=== PATIENT | female | born 1995 | race Caucasian/White ===

== ENCOUNTER 2020-01-28 07:37 | Emergency (ER) | payer OTHER ==
[2020-01-28 08:11] LABS: BASOPHILS % (AUTO) 0.3 %; EOSINOPHILS # (AUTO) 0.1 10^3/uL (0.0-0.7); EOSINOPHILS % (AUTO) 1.2 %; HGB - HEMOGLOBIN 14.5 g/dL (12.0-16.0); LYMPHOCYTES # (AUTO) 2.3 10^3/uL (1.5-3.5); MEAN CORPUSCULAR HEMOGLOBIN 30.3 pg (27.0-31.0); MEAN CORPUSCULAR HGB CONC 33.3 g/dL (32.0-36.0); MEAN PLATELET VOLUME 9.9 fL (7.9-10.8); MONOCYTES # (AUTO) 0.7 10^3/uL (0.0-1.0); MONOCYTES % (AUTO) 10.8 %; NEUTROPHILS # (AUTO) 3.3 10^3/uL (1.5-6.6); NEUTROPHILS % (AUTO) 51.5 %; PLT - PLATELET COUNT 369 10^3/uL (130-450); RED BLOOD COUNT 4.79 10^6/uL (4.20-5.40); RED CELL DISTRIBUTION WIDTH 11.6 % (12.0-15.0); WHITE BLOOD COUNT 6.4 x10^3/uL (4.8-10.8)
[2020-01-28 08:22] LABS: BILIRUBIN,URINE NEGATIVE (NEGATIVE); GLUCOSE, URINE (UA) NEGATIVE (NEGATIVE); KETONES,URINE (UA) NEGATIVE (NEGATIVE); LEUKOCYTE ESTERASE, URINE NEGATIVE (NEGATIVE); NITRITE,URINE NEGATIVE (NEGATIVE); OCCULT BLOOD,URINE LARGE (NEGATIVE); PROTEIN,URINE NEGATIVE (NEGATIVE); UROBILINOGEN,URINE 0.2 (NORMAL) E.U./dL (NORMAL)
[2020-01-28 08:25] LABS: CLARITY,URINE CLOUDY (CLEAR)
[2020-01-28 08:27] LABS: ALBUMIN 4.3 g/dL (3.2-5.5); BILIRUBIN,TOTAL 0.8 mg/dL (0.2-1.0); CALCIUM 9.7 mg/dL (8.5-10.3); CREATININE 0.8 mg/dL (0.4-1.0); TOTAL PROTEIN 8.6 g/dL (6.7-8.2)
[2020-01-28 08:33] LABS: BACTERIA,URINE Many /HPF (None Seen); MUCUS,URINE Marked Strands; SQUAMOUS EPITHELIAL CELL,UR MANY Squamous (<= Few)
--- NOTE | 2020-01-28 08:33 | ED Physician Documentation ---
PD HPI ABD PAIN - Stated complaint Stated Complaint: ABD PX - Chief complaint Chief Complaint: Abd Pain - History obtained from History obtained from: Patient - History of Present Illness Timing - onset: How many weeks ago (1) Timing - duration: Weeks (1) Timing - details: Gradual onset, Still present, Waxing and waning Quality: Sharp, Pain Location: RUQ Improved by: Laying still Worsened by: Eating, Moving, Breathing, Position, Palpation Associated symptoms: Nausea. No: Fever, Diarrhea, Constipation Similar symptoms before: Has not had sx before Recently seen: Clinic - Additional information Additional information: 24-year-old female history of atrophic gastritis has developed right upper quadrant abdominal pain about 1 week ago. She is had persistence of her symptoms she has worsening of her pain when she eats and she has worsening of her pain when she lays on her side or presses on the area or takes a deep breath. She is been in to see her doctors has had an ultrasound done demonstrating normal gallbladder. She has had prior episodes of abdominal pain of a different nature and had endoscopy done demonstrating an atrophic stomach lining and only 1% acid production. Review of Systems Constitutional: denies: Fever Eyes: denies: Decreased vision Ears: denies: Ear pain Nose: denies: Congestion Throat: denies: Sore throat Cardiac: denies: Chest pain / pressure, Palpitations Respiratory: denies: Dyspnea, Cough GI: reports: Abdominal Pain, Nausea. denies: Constipation, Diarrhea : denies: Dysuria, Frequency Skin: denies: Rash Musculoskeletal: denies: Neck pain, Back pain, Extremity pain Neurologic: denies: Generalized weakness, Focal weakness, Numbness PD PAST MEDICAL HISTORY - Present Medications Home Medications: Ambulatory Orders Medication Instructions Recorded Confirmed traMADol [Ultram] 50 - 100 mg PO Q6H PRN #20 tablet 01/28/20 - Allergies Allergies/Adverse Reactions: Allergies Allergy/AdvReac Type Severity Reaction Status Date / Time No Known Drug Allergies Allergy Verified 01/28/20 07:49 PD ED PE NORMAL - Vitals Vital signs reviewed: Yes (hypertensive ) - General General: Alert and oriented X 3, No acute distress, Well developed/nourished - HEENT HEENT: Atraumatic, PERRL, EOMI - Neck Neck: Supple, no meningeal sign, No bony TTP - Cardiac Cardiac: RRR, No murmur - Respiratory Respiratory: No respiratory distress, Clear bilaterally - Abdomen Abdomen: Normal bowel sounds, Soft, Non distended, No organomegaly, Other (RUQ tenderness is reproducible without garding but with arrest of respiration with palpation. ) - Back Back: No CVA TTP, No spinal TTP - Derm Derm: Normal color, Warm and dry, No rash - Extremities Extremities: No deformity, No edema - Neuro Neuro: Alert and oriented X 3, airport guide 2-12 intact, No motor deficit, No sensory deficit, Normal speech Eye Opening: Spontaneous Motor: Obeys Commands Verbal: Oriented GCS Score: 15 - Psych Psych: Normal mood, Normal affect Results - Vitals Vitals: Vital Signs - 24 hr 01/28/20 01/28/20 01/28/20 07:40 07:49 09:49 Temperature 36.3 C L Heart Rate 93 90 83 Respiratory 18 16 16 Rate Blood Pressure 139/96 H 140/78 H 135/75 H O2 Saturation 100 100 100 Oxygen O2 Source Room air - Labs Labs: Laboratory Tests 01/28/20 01/28/20 01/28/20 08:04 08:04 08:11 WBC 6.4 RBC 4.79 Hgb 14.5 Hct 43.6 MCV 91.0 MCH 30.3 MCHC 33.3 RDW 11.6 L Plt Count 369 MPV 9.9 Neut # (Auto) 3.3 Lymph # (Auto) 2.3 [place] # (Auto) 0.7 Eos # (Auto) 0.1 Baso # (Auto) 0.0 Absolute Nucleated RBC 0.00 Nucleated RBC % 0.0 Sodium 135 Potassium 4.0 Chloride 101 Carbon Dioxide 22 Anion Gap 12.0 BUN 12 Creatinine 0.8 Estimated GFR (MDRD) 87 L Glucose 94 Calcium 9.7 Total Bilirubin 0.8 AST 21 ALT 14 Alkaline Phosphatase 49 Total Protein 8.6 H Albumin 4.3 Globulin 4.3 H Albumin/Globulin Ratio 1.0 Lipase 28 Urine Color YELLOW Urine Clarity CLOUDY Urine pH 6.0 Ur Specific [place] >=1.030 H Urine Protein NEGATIVE Urine Glucose (UA) NEGATIVE Urine Ketones NEGATIVE Urine Occult Blood LARGE H Urine Nitrite NEGATIVE Urine Bilirubin NEGATIVE Urine Urobilinogen 0.2 (NORMAL) Ur Leukocyte Esterase NEGATIVE Urine RBC 6-10 H Urine WBC 4-5 Ur Squamous Epith Cells MANY Squamous H Urine Bacteria Many H Urine Mucus Marked Strands Ur Microscopic Review INDICATED Urine Culture Comments NOT INDICATED Urine HCG, Qual 01/28/20 08:11 WBC RBC Hgb Hct MCV MCH MCHC RDW Plt Count MPV Neut # (Auto) Lymph # (Auto) [place] # (Auto) Eos # (Auto) Baso # (Auto) Absolute Nucleated RBC Nucleated RBC % Sodium Potassium Chloride Carbon Dioxide Anion Gap BUN Creatinine Estimated GFR (MDRD) Glucose Calcium Total Bilirubin AST ALT Alkaline Phosphatase Total Protein Albumin Globulin Albumin/Globulin Ratio Lipase Urine Color Urine Clarity Urine pH Ur Specific [place] >=1.030 H Urine Protein Urine Glucose (UA) Urine Ketones Urine Occult Blood Urine Nitrite Urine Bilirubin Urine Urobilinogen Ur Leukocyte Esterase Urine RBC Urine WBC Ur Squamous Epith Cells Urine Bacteria Urine Mucus Ur Microscopic Review Urine Culture Comments Urine HCG, Qual NEGATIVE - Rads (name of study) u/s abd Radiology: Prelim report reviewed (Impression: Normal right upper quadrant abdominal ultrasound with no explanation for pain.), EMP read indepedently, See rad report Procedures - Bedside sono Bedside sono by EMP: With use of bedside ultrasound the gallbladder is imaged it is sonographically tender there is no pericholecystic fluid no thickening of the gallbladder wall or or no evidence of obvious stone. The right kidney is imaged it is so nographically tender as well there is not obvious hydronephrosis. PD MEDICAL DECISION MAKING - ED course Complexity details: reviewed old records, reviewed results, re-evaluated patient, considered differential, d/w patient ED course: 24-year-old female with right upper quadrant abdominal pain has had right upper quadrant of abdominal pain over the past week and she has had ultrasound done which was negative we have repeated the ultrasound here today did not find any evidence of intrahepatic bile duct dilation and no chemical evidence of obstruction. She does have a tender right upper quadrant specifically and she does get some relief of her pain with continued compression of the gallbladder. She has a family history of mother and grandmother requiring HIDA scan to delineate her gallbladder problem which resolved her symptoms when the gallbladder was removed. I considered imaging with CT scan and after discussing with the patient her symptoms and her relief of pain with compression she allowed me to compress her gallbladder and did get further relief of her pain. I suspect the patient needs the HIDA scan and I have referred her to surgery for further evaluation.Today there is no evidence of obstruction or cholecystitis and we will treat her symptomatically while she is waiting to get her scans done.We will place her on a fat-free diet and provide some tramadol for pain relief.( not able to take oral NSAIDS secondary to atrophic gastritis) Departure - Departure Disposition: 01 Home, Self Care Clinical Impression: Biliary colic Condition: Stable Instructions: ED Abdominal Pain Gallstone Poss, ED Diet Low Fat Follow-Up: Hunter Meyers MD [Provider Admit Priv/Credential] - Prescriptions: traMADol [Ultram] 50 - 100 mg PO Q6H PRN #20 tablet PRN Reason: Pain
--- NOTE | 2020-01-28 10:17 | Ultrasound Report ---
PROCEDURE: Abdomen Limited INDICATIONS: RUQ pain X 1 wk TECHNIQUE: Real-time focused scanning was performed of the abdomen, with image documentation. COMPARISON: None FINDINGS: Normal hepatic parenchymal echogenicity, echotexture, and contour. No focal hepatic mass. No intrahepatic or extrahepatic biliary ductal dilatation. The common duct measures 2 mm. Normal appearance of the gallbladder without sludge, cholelithiasis, wall thickening, or pericholecys tic fluid. Right kidney is unremarkable. IMPRESSION: Normal right upper quadrant abdominal ultrasound with no explanation for pain. Reviewed by: Chester Gordon MD on 01/28/2020 10:16 AM PDT Approved by: Chester Gordon MD on 01/28/2020 10:16 AM PDT Station ID: [id number]
[2020-01-28] MEDS ORDERED: KETOROLAC 30 MG/ML VIAL IVP STA (10:33)
[2020-01-28 10:39] LABS: HCG UR QUAL NEGATIVE
[2020-01-28 10:58] VITALS: BP 124/78
== END 2020-01-28 10:58 | disposition home or self-care (01) ==
LOC: ED 07:37
DX: K80.50 Calculus of bile duct without cholangitis or cholecystitis without obstruction (principal)
CPT/HCPCS: 36415; 76705; 80053; 81001; 81003; 81025; 83690; 85025; 87086; 96374; 99284

== ENCOUNTER 2020-02-05 08:52 | Outpatient (CLI) | payer OTHER ==
[2020-02-05] MEDS ORDERED: SINCALIDE 5 MCG VIAL ONE (10:07)
[2020-02-05] MEDS ORDERED: SINCALIDE 1.5 MCG in SODIUM CHLORIDE 0.9% 50 ML IV ONE (12:43)
--- NOTE | 2020-02-05 14:18 | Nuclear Medicine Report ---
PROCEDURE: Hepatobiliary HIDA w/ Rx INDICATIONS: ABD PAIN RADIOPHARMACEUTICAL: 5.2 mCi Tc-99m meprofenin i.v. and 1.5 ?g sincalide i.v. TECHNIQUE: Following intravenous administration of Tc-99m meprofenin, sequential anterior abdominal images were obtained through 55 minutes. To evaluate the contractile response of the gallbladder in response to Cholecystokinin (CCK), 1.5 microgram sincalide (0.02 ?g/kg) was administered by slow intr avenous infusion approximately extending minutes after the administration of the radiopharmaceutical. Sequential imaging was continued for 30 minutes after the start of CCK infusion. Gallbladder eject ion fraction was calculated. COMPARISON: None. FINDINGS: Biliary scan: There is normal tracer uptake and excretion by the liver. There is normal visualizati on of the intrahepatic ducts, common bile duct, and gallbladder. There is normal tracer transit into the duodenum. CCK stimulation: There is normal contractile response of the gallbladder to CCK infusion. The calcu lated gallbladder ejection fraction is 53%; normal values are above 35%. IMPRESSION: 1. Normal biliary imaging study. 2. Normal contractile response of gallbladder to CCK infusion.. Reviewed by: Feli Oliveira MD, PhD on 02/05/2020 2:17 PM PDT Approved by: Feli Oliveira MD, PhD on 02/05/2020 2:17 PM PDT Station ID: [id number]
== END 2020-02-05 08:53 | disposition home or self-care (01) ==
LOC: DI 08:52
PROVIDERS: ATTEND Nurse Practitioner Family
DX: R10.9 Unspecified abdominal pain (principal)
CPT/HCPCS: 78227; J7040

== ENCOUNTER 2020-10-12 23:50 | Emergency (ER) | payer OTHER ==
--- NOTE | 2020-10-13 02:57 | ED Physician Documentation ---
PD HPI SKIN - Stated complaint Stated Complaint: LT FOOT SWOLLEN/RASH - Chief complaint Chief Complaint: Ext Problem - History obtained from History obtained from: Patient - History of Present Illness Timing - onset: How many days ago (few) Timing - duration: Days (few) Timing - details: Abrupt onset (started with blister appearing lesion between 2 toes and then started to have redness and tenderness. Seen at [facility] and Rx Augmentin and mupirocin 2 days ago, and the redness has increased since.), Still present (worsening since seen in clinic; she feels topical mupirocin making it worse versus just getting worse anyway.) Location: LLE (initially between 2nd and 3rd toes, and now onto dorsum of the foot.) Quality / character: Painful, Discolored (red), Swelling. No: Vesicular, Draining Associated symptoms: No: Fever, Myalgias, N/V/D Contributing factors: No: Exposed to Poison adolfo/oak, Insect bite /sting Similar symptoms before: Has not had sx before Recently seen: Clinic ([facility] 2 days ago with Rx of augmentin and mupirocin with worsening still.) PD PAST MEDICAL HISTORY - Present Medications Home Medications: Ambulatory Orders Medication Instructions Recorded Confirmed traMADol [Ultram] 50 - 100 mg PO Q6H PRN #20 tablet 01/28/20 Doxycycline Hyclate 150 mg PO BID #14 tablet 10/13/20 - Allergies Allergies/Adverse Reactions: Allergies Allergy/AdvReac Type Severity Reaction Status Date / Time No Known Drug Allergies Allergy Verified 10/13/20 00:01 - Social History Does the pt smoke?: No Smoking Status: Never smoker Does the pt have substance abuse?: No - Immunizations Immunizations are current?: Yes PD ED PE NORMAL - Vitals Vital signs reviewed: Yes - General General: Alert and oriented X 3, No acute distress, Well developed/nourished - Derm Derm: Normal color, Warm and dry - Extremities Extremities: Other (right foot with small skin erosion between 2-3 toes. Others are good without tinea appearance. Redness with tender and swelling to dorsum of foot to about mid MT area. No redness on plantar. ) - Neuro Neuro: No motor deficit, No sensory deficit Results - Vitals Vitals: Vital Signs - 24 hr 10/13/20 10/13/20 00:01 03:25 Temperature 36.8 C 36.2 C L Heart Rate 70 72 Respiratory 16 14 Rate Blood Pressure 138/96 H 119/72 O2 Saturation 100 100 Oxygen O2 Source Room air PD MEDICAL DECISION MAKING - ED course Complexity details: considered differential (initially small abscess like lesion with now cellulitis on foot. Presume needs better staph coverage since not improving on Augmentin.), d/w patient Departure - Departure Disposition: 01 Home, Self Care Clinical Impression: Cellulitis of foot Condition: Stable Record reviewed to determine appropriate education?: Yes Instructions: ED Infec Skin Cellulitis Follow-Up: YAIMA CAMPOS ARNP [Primary Care Provider] - Prescriptions: Doxycycline Hyclate 150 mg PO BID #14 tablet Comments: Stop the mupirocin and amoxicillin/clavulanic acid as it did not seem to be working. I think the increased redness is just spreading of the infection and not a reaction to the topical antibiotic. However it does suggest the medicines are not working. Continue cleaning the area with soap and water and apply just regular antibiotic ointment lightly such as bacitracin or Neosporin. Change antibiotics to doxycycline twice daily for a week. Recheck if not improving well over the next 2 to 3 days and resolved by 3 to 5 days. Return if worsening or general symptoms such as nausea fever lightheadedness etc. Discharge Date/Time: 10/13/20 03:25
[2020-10-13] MEDS ORDERED: BACITRACIN ZINC OINT 1 PACKET TOP STA (03:11)
[2020-10-13] MEDS ORDERED: DOXYCYCLINE 100 MG TABLET PO STA (03:11)
[2020-10-13 03:26] VITALS: BP 119/72
== END 2020-10-13 03:25 | disposition home or self-care (01) ==
LOC: ED 23:50
DX: L03.116 Cellulitis of left lower limb (principal)
CPT/HCPCS: 99281; 99282; A9270

== ENCOUNTER 2020-12-17 19:41 | Emergency (ER) | payer OTHER ==
--- NOTE | 2020-12-17 20:40 | ED Physician Documentation ---
PD HPI SKIN - Stated complaint Stated Complaint: LT TOE WOUNDS - Chief complaint Chief Complaint: Ext Problem - History obtained from History obtained from: Patient - History of Present Illness Timing - onset: How many months ago (2) Timing - details: Gradual onset Pain level now: 3 Location: LLE Quality / character: Itchy, Burning, Vesicular Associated symptoms: No: Fever Recently seen: Clinic, Emergency Dept - Additional information Additional information: c/o 2 months of rash on left foot, 2nd-4th webspaces and on dorsal surface of these toes. She was seen at onset 2 months ago at walk in clinic, prescribed augmentin and mupirocin, then came to this ED when she perceived that the rash was getting worse with these medications. She was switched to doxycycline and, by that time, she had developed confluent erythema spreading away from the toes. She says the erythema resolved with the doxycycline but she continues to have lesions between toes as well as on dorsum of same toes. She had been given an appointment to see PMD which was cancelled and thus rescheduled for next week Review of Systems Constitutional: reports: Reviewed and negative Skin: reports: Rash PD PAST MEDICAL HISTORY - Past Medical History Past Medical History: No - Past Surgical History Past Surgical History: Yes - Present Medications Home Medications: Ambulatory Orders Medication Instructions Recorded Confirmed traMADol [Ultram] 50 - 100 mg PO Q6H PRN #20 tablet 01/28/20 Doxycycline Hyclate 150 mg PO BID #14 tablet 10/13/20 Fluconazole 150 mg PO OAW #3 tablet 12/17/20 Triamcinolone 0.1% Cream [Kenalog 1 applic TOP BID #15 gm 12/17/20 0.1% Cream] - Allergies Allergies/Adverse Reactions: Allergies Allergy/AdvReac Type Severity Reaction Status Date / Time No Known Drug Allergies Allergy Verified 12/17/20 19:48 - Social History Does the pt smoke?: No Smoking Status: Never smoker Does the pt drink ETOH?: No Does the pt have substance abuse?: No - Immunizations Immunizations are current?: Yes - POLST Patient has POLST: No PD ED PE NORMAL - Vitals Vital signs reviewed: Yes - General General: Alert and oriented X 3, No acute distress, Well developed/nourished PD ED PE EXPANDED - Extremities Feet visual: 1 - rash (moist, white skin in 2nd-4th webspaces of left foot. dry, crusted vesicles on dorsal surface of these toes with a few lesions more proximally located (over distal 3rd, 4th metatarsals). no fluctuance, no confluent erythema, no discharge) Results - Vitals Vitals: Oxygen O2 Source Room air PD MEDICAL DECISION MAKING - ED course Complexity details: considered differential, d/w patient ED course: exam is strongly s/o tinea pedis, will treat with azole PO 1 q week x 4 weeks, and topical steroid medium potency. Departure - Departure Disposition: 01 Home, Self Care Clinical Impression: Tinea pedis Condition: Good Instructions: ED Fungal Infec Athlete Foot Follow-Up: ROBERT Perez [Provider Group] Prescriptions: Fluconazole 150 mg PO OAW #3 tablet Triamcinolone 0.1% Cream [Kenalog 0.1% Cream] 1 applic TOP BID #15 gm Discharge Date/Time: 12/17/20 21:51
[2020-12-17] MEDS ORDERED: FLUCONAZOLE 100 MG TABLET PO STA (21:32)
[2020-12-17] MEDS ORDERED: FLUCONAZOLE 100 MG TABLET ONE (21:50)
[2020-12-17 21:52] VITALS: BP 139/96
== END 2020-12-17 21:51 | disposition home or self-care (01) ==
LOC: ED 19:41
DX: B35.3 Tinea pedis (principal)
CPT/HCPCS: 99282; 99283; A9270

== ENCOUNTER 2021-02-08 17:21 | Emergency (ER) | payer OTHER ==
[2021-02-08 18:00] LABS: BILIRUBIN,URINE NEGATIVE (NEGATIVE); GLUCOSE, URINE (UA) NEGATIVE (NEGATIVE); KETONES,URINE (UA) 15 mg/dL (NEGATIVE); LEUKOCYTE ESTERASE, URINE NEGATIVE (NEGATIVE); NITRITE,URINE NEGATIVE (NEGATIVE); OCCULT BLOOD,URINE LARGE (NEGATIVE); PROTEIN,URINE NEGATIVE (NEGATIVE); UROBILINOGEN,URINE 0.2 (NORMAL) E.U./dL (NORMAL)
[2021-02-08 18:00] LABS: BASOPHILS % (AUTO) 0.3 %; EOSINOPHILS % (AUTO) 0.1 %; HCT - HEMATOCRIT 46.7 % (37.0-47.0); HGB - HEMOGLOBIN 15.8 g/dL (12.0-16.0); LYMPHOCYTES # (AUTO) 2.6 10^3/uL (1.5-3.5); LYMPHOCYTES % (AUTO) 19.2 %; MEAN CORPUSCULAR HEMOGLOBIN 30.9 pg (27.0-31.0); MEAN CORPUSCULAR HGB CONC 33.8 g/dL (32.0-36.0); MEAN CORPUSCULAR VOLUME 91.4 fL (81.0-99.0); MEAN PLATELET VOLUME 9.6 fL (7.9-10.8); MONOCYTES # (AUTO) 1.2 10^3/uL (0.0-1.0); MONOCYTES % (AUTO) 8.4 %; NEUTROPHILS # (AUTO) 9.9 10^3/uL (1.5-6.6); NEUTROPHILS % (AUTO) 71.7 %; PLT - PLATELET COUNT 435 10^3/uL (130-450); RED BLOOD COUNT 5.11 10^6/uL (4.20-5.40); WHITE BLOOD COUNT 13.7 x10^3/uL (4.8-10.8)
[2021-02-08 18:02] LABS: CLARITY,URINE CLEAR (CLEAR)
[2021-02-08 18:07] LABS: BACTERIA,URINE Moderate /HPF (None Seen); HCG UR QUAL NEGATIVE; MUCUS,URINE Few Strands; SQUAMOUS EPITHELIAL CELL,UR FEW Squamous (<= Few); WBC,URINE 0-3 /HPF (0-5)
[2021-02-08 18:12] LABS: ALBUMIN/GLOBULIN RATIO 1.3 (1.0-2.2); BILIRUBIN,TOTAL 1.3 mg/dL (0.2-1.0); CALCIUM 9.8 mg/dL (8.5-10.3); CREATININE 0.8 mg/dL (0.4-1.0); POTASSIUM 3.7 mmol/L (3.5-5.0); TOTAL PROTEIN 8.8 g/dL (6.7-8.2)
[2021-02-08] MEDS ORDERED: IBUPROFEN 800 MG TABLET PO STA (18:58)
[2021-02-08] MEDS ORDERED: ONDANSETRON ODT 4 MG TABLET TL STA (18:58)
--- NOTE | 2021-02-08 18:59 | ED Physician Documentation ---
PD HPI ABD PAIN - Stated complaint Stated Complaint: LLQ PAIN/N/V/BACK PX - Chief complaint Chief Complaint: Abd Pain - History obtained from History obtained from: Patient - Additional information Additional information: 25-year-old woman with history of kidney cyst and some epigastric issues presents with left flank pain rating to left lower quadrant starting yesterday. It is coming in waves and when it is bad it is associated with nausea and dry heaves. She was [facility] [employer] [facility] and sent here for evaluation for potential diverticulitis. She denies fevers or chills. No personal history of diverticulitis, but both diverticulitis and renal colic run in the family. No abdominal surgical history. Review of Systems Ten Systems: 10 systems reviewed and negative Constitutional: denies: Fever, Chills Eyes: reports: Reviewed and negative Ears: reports: Reviewed and negative Nose: reports: Reviewed and negative PD PAST MEDICAL HISTORY - Past Surgical History Past Surgical History: Yes - Present Medications Home Medications: Ambulatory Orders Medication Instructions Recorded Confirmed traMADol [Ultram] 50 - 100 mg PO Q6H PRN #20 tablet 01/28/20 Doxycycline Hyclate 150 mg PO BID #14 tablet 10/13/20 Fluconazole 150 mg PO OAW #3 tablet 12/17/20 Triamcinolone 0.1% Cream [Kenalog 1 applic TOP BID #15 gm 12/17/20 0.1% Cream] HYDROcod/ACETAM 5/325 [[place] 5/325] 1 - 2 tab PO Q6H PRN #15 tablet 02/08/21 Ondansetron Odt [Zofran] 4 mg TL Q6H PRN #10 tablet 02/08/21 - Allergies Allergies/Adverse Reactions: Allergies Allergy/AdvReac Type Severity Reaction Status Date / Time No Known Drug Allergies Allergy Verified 02/08/21 17:39 - Social History Does the pt smoke?: No Smoking Status: Never smoker Does the pt drink ETOH?: No Does the pt have substance abuse?: No - Immunizations Immunizations are current?: Yes - POLST Patient has POLST: No PD ED PE NORMAL - Vitals Vital signs reviewed: Yes - General General: Alert and oriented X 3 (Pain is not bad right now she says and she appears comfortable.) - Cardiac Cardiac: RRR, No murmur - Respiratory Respiratory: No respiratory distress, Clear bilaterally - Abdomen Abdomen: Normal bowel sounds, Soft, Non tender - Back Back: No: No CVA TTP (Mild left flank tenderness) - Derm Derm: No rash - Extremities Extremities: No edema, No calf tenderness / cord - Neuro Neuro: Alert and oriented X 3, Normal speech Results - Vitals Vitals: Vital Signs - 24 hr 02/08/21 02/08/21 02/08/21 17:35 19:39 20:14 Temperature 36.1 C L 36.8 C Heart Rate 92 75 79 Respiratory 16 19 16 Rate Blood Pressure 135/84 H 137/88 H 120/82 H O2 Saturation 99 98 96 Oxygen O2 Source Room air - Labs Labs: Laboratory Tests 02/08/21 02/08/21 02/08/21 17:53 17:54 17:54 WBC 13.7 H RBC 5.11 Hgb 15.8 Hct 46.7 MCV 91.4 MCH 30.9 MCHC 33.8 RDW 12.0 Plt Count 435 MPV 9.6 Neut # (Auto) 9.9 H Lymph # (Auto) 2.6 [place] # (Auto) 1.2 H Eos # (Auto) 0.0 Baso # (Auto) 0.0 Absolute Nucleated RBC 0.00 Nucleated RBC % 0.0 Sodium 137 Potassium 3.7 Chloride 99 L Carbon Dioxide 27 Anion Gap 11.0 BUN 13 Creatinine 0.8 Estimated GFR (MDRD) 86 L Glucose 99 Calcium 9.8 Total Bilirubin 1.3 H AST 23 ALT 20 Alkaline Phosphatase 64 Total Protein 8.8 H Albumin 5.0 Globulin 3.8 Albumin/Globulin Ratio 1.3 Lipase 30 Urine Color YELLOW Urine Clarity CLEAR Urine pH 6.0 Ur Specific [place] 1.020 Urine Protein NEGATIVE Urine Glucose (UA) NEGATIVE Urine Ketones 15 H Urine Occult Blood LARGE H Urine Nitrite NEGATIVE Urine Bilirubin NEGATIVE Urine Urobilinogen 0.2 (NORMAL) Ur Leukocyte Esterase NEGATIVE Urine RBC 11-25 H Urine WBC 0-3 Ur Squamous Epith Cells FEW Squamous Urine Bacteria Moderate H Urine Mucus Few Strands Ur Microscopic Review INDICATED Urine Culture Comments NOT INDICATED Urine HCG, Qual NEGATIVE PD MEDICAL DECISION MAKING - ED course ED course: 25-year-old woman with history consistent with renal colic. Initial read on the CT was cystic adnexal a otherwise normal. I discussed it with the radiologist and he admits that there is a calcification that certainly could be a left UVJ stone of small size. I am prescribing a short course of short-acting opioid pain medication for this patient. I have reviewed the patients [employer]. [employer] SYSTEM ADMINISTRATOR and no concerning findings were noted. I have discussed that the opioids are for short term therapy only, and will not be refilled from the ED. Departure - Departure Disposition: 01 Home, Self Care Clinical Impression: Renal colic Condition: Good Record reviewed to determine appropriate education?: Yes Instructions: ED Stone Renal W Colic Follow-Up: Alfredo Monk MD [Physician No Access] - Prescriptions: HYDROcod/ACETAM 5/325 [[place] 5/325] 1 - 2 tab PO Q6H PRN #15 tablet PRN Reason: Pain Ondansetron Odt [Zofran] 4 mg TL Q6H PRN #10 tablet PRN Reason: Nausea / Vomiting Comments: Prescription sent electronically to [facility] in [place]. If pain lasts for more than a few more days, you should follow-up with the urologist. Given the size and location though I expect this will be gone quickly. Return for new or worsening symptoms. I am prescribing a short course of narcotic pain medication for you. These are potentially dangerous and addictive medications that should be used carefully. These medications may constipate you. Take an [id number] stool softener (docusate) twice daily with plenty of water while taking these medications. If you go 24 hours without a bowel movement, take [id number] miralax, per package instructions. Do not drink or drive while taking these medications. If you received narcotic or sedating medications while in the emergency department, do not drive for 24 hours. Store this medication in a safe, secure place and out of reach of children. It is a violation of federal law to give or sell this medication to another person or to use in a manner other than prescribed. The ED will not refill narcotic prescriptions, including prescriptions lost or stolen. To dispose of unwanted medications: 1. [facility] at [address] in [place] has a medication drop box. They accept prescription medications (in pill form) Monday through Monday 9:00 a.m. to 5:00 p.m. 2. [facility] accepts prescription medications (in pill form only) for disposal year round. Call for more information. 3. Contact the [facility] for the next [facility] sponsored prescription drug collection event. , [phone], or [phone]; Note that many narcotic pain relievers also contain Tylenol/acetaminophen. Please ensure that your total dose of acetaminophen from all sources does not exceed 3 g (3000 mg) per day. Discharge Date/Time: 02/08/21 20:14
--- NOTE | 2021-02-08 19:48 | CT Report ---
PROCEDURE: Abdomen/Pelvis WO INDICATIONS: LLQ pain TECHNIQUE: Noncontrast 5 mm thick sections acquired from the diaphragms to the symphysis. 5 mm coronal and sagi ttal reformats were then performed. For radiation dose reduction, the following was used: automated exposure control, adjustment of mA and/or kV according to patient size. COMPARISON: None. FINDINGS: Image quality: Excellent. ABDOMEN: Lung bases: Lung bases are clear. Heart size is normal. Solid organs: Liver and spleen are normal in size. Gallbladder is unremarkable Pancreas is normal in contours. No adrenal nodules. Kidneys are normal in size, without hydronephrosis or nephrolithia sis. Peritoneum and bowel: Unenhanced bowel loops demonstrate normal wall thickness and caliber. No free fluid or air. Nodes and vessels: No retroperitoneal or mesenteric adenopathy by size criteria. Aorta and inferior vena cava are normal in caliber. Miscellaneous: No ventral hernias. PELVIS: Genitourinary: Bladder wall thickness is normal. Miscellaneous: No inguinal hernias or adenopathy. Bilateral cystic adnexae. Bones: No suspicious bony lesions. No vertebral body compression fractures. IMPRESSION: Bilateral cystic adnexae. No evidence of acute abdominal process. Reviewed by: Cliff Guillory MD on 02/08/2021 7:47 PM PDT Approved by: Cliff Guillory MD on 02/08/2021 7:47 PM PDT Station ID: [id number]
[2021-02-08] MEDS ORDERED: HYDROcod/ACET 5/325 Prepack 4 PO STA (20:01)
[2021-02-08] MEDS ORDERED: ONDANSETRON ODT 4 MG Prepack 2 TL PRN (20:01)
[2021-02-08 20:15] VITALS: BP 120/82
== END 2021-02-08 20:14 | disposition home or self-care (01) ==
LOC: ED 17:21
DX: N20.1 Calculus of ureter (principal)
CPT/HCPCS: 36415; 74176; 80053; 81001; 81025; 83690; 85025; 99283; 99284; A9270; Q0162; 81003; 87086

== ENCOUNTER 2021-03-03 15:39 | Emergency (ER) | payer OTHER ==
[2021-03-03 15:48] VITALS: BP 117/100
--- NOTE | 2021-03-03 15:52 | ED Physician Documentation ---
PD HPI DYSPNEA - Stated complaint Stated Complaint: ELEVATED HEART RATE,DIZZY - Chief complaint Chief Complaint: Cardiac - History obtained from History obtained from: Patient - History of Present Illness Timing - onset: How many weeks ago (1) Timing - onset during: Light activity Timing - duration: Weeks (1) Timing - details: Gradual onset, Still present, Waxing and waning Inciting event(s): Other (feeling chest pressure/aching and dyspnea with activity for past week. No URI symptoms.). No: Out of meds, URI, Immobilization/travel Improved by: Rest Worsened by: Exertion. No: Laying flat Associated symptoms: Chest pain / discomfort, Palpitations (heart rate intermittently fast at 110-120 by her smart watch.). No: Fever, Cough, Diaphoresis, Bilateral edema Similar symptoms before: Has not had sx before Recently seen: Not recently seen Review of Systems Constitutional: denies: Fever, Chills Nose: denies: Rhinorrhea / runny nose, Congestion Throat: denies: Sore throat Cardiac: reports: Palpitations (feeling of heart going fast). denies: Chest pain / pressure Respiratory: reports: Dyspnea. denies: Cough, Wheezing GI: denies: Abdominal Pain, Nausea, Vomiting, Diarrhea, Bloody / black stool : denies: Dysuria Neurologic: denies: Generalized weakness, Focal weakness, Near syncope (but feeling lightheaded at times with it.), Syncope, Headache PD PAST MEDICAL HISTORY - Past Medical History Cardiovascular: None Respiratory: Asthma (when younger; no current MDI use. ) Neuro: None Endocrine/Autoimmune: None - Past Surgical History Past Surgical History: Yes - Present Medications Home Medications: Ambulatory Orders Medication Instructions Recorded Confirmed traMADol [Ultram] 50 - 100 mg PO Q6H PRN #20 tablet 01/28/20 Doxycycline Hyclate 150 mg PO BID #14 tablet 10/13/20 Fluconazole 150 mg PO OAW #3 tablet 12/17/20 Triamcinolone 0.1% Cream [Kenalog 1 applic TOP BID #15 gm 12/17/20 0.1% Cream] HYDROcod/ACETAM 5/325 [[place] 5/325] 1 - 2 tab PO Q6H PRN #15 tablet 02/08/21 Ondansetron Odt [Zofran] 4 mg TL Q6H PRN #10 tablet 02/08/21 Albuterol Sulf [Ventolin Hfa 2 - 3 puffs INH QID 10 Days #1 03/03/21 Inhaler] inhaler Cetirizine [ZyrTEC] 10 mg PO DAILY #15 tablet 03/03/21 dexAMETHasone [Decadron] 4 mg PO DAILY #5 tablet 03/03/21 - Allergies Allergies/Adverse Reactions: Allergies Allergy/AdvReac Type Severity Reaction Status Date / Time No Known Drug Allergies Allergy Verified 03/03/21 15:44 - Social History Does the pt smoke?: No Smoking Status: Never smoker Does the pt drink ETOH?: No Does the pt have substance abuse?: No - Immunizations Immunizations are current?: Yes - POLST Patient has POLST: No PD ED PE NORMAL - Vitals Vital signs reviewed: Yes - General General: Alert and oriented X 3, No acute distress, Well developed/nourished - HEENT HEENT: Pharynx benign - Neck Neck: Supple, no meningeal sign, No adenopathy - Cardiac Cardiac: RRR, No murmur - Respiratory Respiratory: Clear bilaterally - Abdomen Abdomen: Soft, Non tender - Derm Derm: Normal color, Warm and dry - Extremities Extremities: No tenderness to palpate, Normal ROM s pain, No edema, No calf tenderness / cord - Neuro Neuro: Alert and oriented X 3, No motor deficit, Normal speech - Psych Psych: Normal mood Results - Vitals Vitals: Oxygen O2 Source Room air - EKG (time done) 15:49 Rate: Rate (enter#) (88) Rhythm: NSR [place]: Normal Intervals: Normal [place] QRS: Normal Ischemia: Normal ST segments. No: ST elevation c/w ischemia, ST depression Compare to prior EKG: Old EKG unavailable - Labs Labs: Laboratory Tests 03/03/21 03/03/21 03/03/21 16:24 16:24 16:24 WBC 6.3 RBC 4.55 Hgb 14.1 Hct 42.2 MCV 92.7 MCH 31.0 MCHC 33.4 RDW 12.2 Plt Count 401 MPV 9.8 Neut # (Auto) 3.0 Lymph # (Auto) 2.4 Kleberg # (Auto) 0.8 Eos # (Auto) 0.1 Baso # (Auto) 0.0 Absolute Nucleated RBC 0.00 Nucleated RBC % 0.0 Sodium 137 Potassium 3.6 Chloride 101 Carbon Dioxide 26 Anion Gap 10.0 BUN 13 Creatinine 0.8 Estimated GFR (MDRD) 86 L Glucose 99 Calcium 9.6 Total Bilirubin 0.8 AST 18 ALT 14 Alkaline Phosphatase 52 Troponin I High Sens < 2.3 L B-Natriuretic Peptide Total Protein 7.9 Albumin 4.6 Globulin 3.3 Albumin/Globulin Ratio 1.4 Lipase 57 H TSH Serum HCG, Qual 03/03/21 03/03/21 03/03/21 16:24 16:24 16:24 WBC RBC Hgb Hct MCV MCH MCHC RDW Plt Count MPV Neut # (Auto) Lymph # (Auto) [place] # (Auto) Eos # (Auto) Baso # (Auto) Absolute Nucleated RBC Nucleated RBC % Sodium Potassium Chloride Carbon Dioxide Anion Gap BUN Creatinine Estimated GFR (MDRD) Glucose Calcium Total Bilirubin AST ALT Alkaline Phosphatase Troponin I High Sens B-Natriuretic Peptide 22 Total Protein Albumin Globulin Albumin/Globulin Ratio Lipase TSH 2.07 Serum HCG, Qual NEGATIVE - Rads (name of study) chest xray Radiology: Prelim report reviewed (no acute infiltrates nor changes. ), See rad report PD MEDICAL DECISION MAKING - ED course Complexity details: reviewed results, re-evaluated patient (she feels better with albuterol. Labs/CXR/ECG okay. Presume she is having some reaftive airway process. ), considered differential, d/w patient Departure - Departure Disposition: 01 Home, Self Care Clinical Impression: Dyspnea on exertion Condition: Stable Instructions: ED Dyspnea Shortness of Breath Follow-Up: Gini Ocampo, FLOOR COVERER [Primary Care Provider] - Prescriptions: dexAMETHasone [Decadron] 4 mg PO DAILY #5 tablet Albuterol Sulf [Ventolin Hfa Inhaler] 2 - 3 puffs INH QID 10 Days #1 inhaler Cetirizine [ZyrTEC] 10 mg PO DAILY #15 tablet Comments: Your EKG, chest x-ray, blood tests are normal here. I presume you are having some reactive airway inflammation and spasming. I would treat this with albuterol inhaler 2 to 3 puffs 4 times a day for the next several days to a week and then as needed. Also Decadron steroid daily for the next 5 days. You could also consider adding cetirizine daily for the next week or 10 days. I would anticipate improvement in your breathing and activity ability over the next few days. Recheck if still not improved with the above treatments. Activity as tolerated. Discharge Date/Time: 03/03/21 17:35
[2021-03-03] MEDS ORDERED: ALBUTEROL 1 PUFF INH STA (16:14)
[2021-03-03] MEDS ORDERED: IBUPROFEN 600 MG TABLET PO STA (16:14)
[2021-03-03 16:35] LABS: BASOPHILS % (AUTO) 0.3 %; EOSINOPHILS # (AUTO) 0.1 10^3/uL (0.0-0.7); EOSINOPHILS % (AUTO) 1.4 %; HCT - HEMATOCRIT 42.2 % (37.0-47.0); HGB - HEMOGLOBIN 14.1 g/dL (12.0-16.0); LYMPHOCYTES # (AUTO) 2.4 10^3/uL (1.5-3.5); LYMPHOCYTES % (AUTO) 37.6 %; MEAN CORPUSCULAR HGB CONC 33.4 g/dL (32.0-36.0); MEAN CORPUSCULAR VOLUME 92.7 fL (81.0-99.0); MEAN PLATELET VOLUME 9.8 fL (7.9-10.8); MONOCYTES # (AUTO) 0.8 10^3/uL (0.0-1.0); MONOCYTES % (AUTO) 13.3 %; NEUTROPHILS % (AUTO) 47.2 %; PLT - PLATELET COUNT 401 10^3/uL (130-450); RED BLOOD COUNT 4.55 10^6/uL (4.20-5.40); RED CELL DISTRIBUTION WIDTH 12.2 % (12.0-15.0); WHITE BLOOD COUNT 6.3 x10^3/uL (4.8-10.8)
--- NOTE | 2021-03-03 16:42 | XRAY Report ---
PROCEDURE: Chest 1 View X-Ray INDICATIONS: chest pain/dyspnea TECHNIQUE: One view of the chest was acquired. COMPARISON: None FINDINGS: Surgical changes and devices: None. Lungs and pleura: No pleural effusions or pneumothorax. Lungs are clear. Mediastinum: Mediastinal contours appear normal. Heart size is normal. Bones and chest wall: No suspicious bony lesions. Overlying soft tissues appear unremarkable. IMPRESSION: No acute cardiopulmonary disease process. Reviewed by: Feli Oliveira MD, PhD on 03/03/2021 4:40 PM PDT Approved by: Feli Oliveira MD, PhD on 03/03/2021 4:40 PM PDT Station ID: [id number]
[2021-03-03 16:46] LABS: ALBUMIN 4.6 g/dL (3.2-5.5); ALBUMIN/GLOBULIN RATIO 1.4 (1.0-2.2); BILIRUBIN,TOTAL 0.8 mg/dL (0.2-1.0); CALCIUM 9.6 mg/dL (8.5-10.3); CREATININE 0.8 mg/dL (0.4-1.0); POTASSIUM 3.6 mmol/L (3.5-5.0); TOTAL PROTEIN 7.9 g/dL (6.7-8.2)
[2021-03-03 17:02] LABS: HCG,QUALITATIVE BLOOD NEGATIVE
== END 2021-03-03 17:35 | disposition home or self-care (01) ==
LOC: ED 15:39
DX: R06.00 Dyspnea, unspecified (principal)
CPT/HCPCS: 36415; 80053; 83690; 83880; 84443; 84484; 84703; 85025; 93005; 94640; 94664; 99284

== ENCOUNTER 2021-06-02 18:24 | Outpatient (CLI) | payer OTHER ==
--- NOTE | 2021-06-02 20:06 | XRAY Report ---
PROCEDURE: Wrist 4 View LT INDICATIONS: L WRIST PX TECHNIQUE: 4 views of the wrist were acquired. COMPARISON: None FINDINGS: Bones: No fractures or dislocations. No suspicious bony lesions. Scaphoid view: Scaphoid is intact. Soft tissues: No suspicious soft tissue calcifications. IMPRESSION: No finding to explain patient's symptoms. If indicated, MRI of wrist can be done for evaluation of in ternal derangement. Reviewed by: Ihsan Juan MD on 06/02/2021 8:04 PM PST Approved by: Ihsan Juan MD on 06/02/2021 8:04 PM PST Station ID: [id number]
--- NOTE | 2021-06-02 20:06 | XRAY Report ---
PROCEDURE: Shoulder 3 View LT INDICATIONS: L SHOULDER PX TECHNIQUE: 3 views of the shoulder were acquired. COMPARISON: None. FINDINGS: Bones: No fractures or dislocations. There is slight inferior subluxation of acromion in relation to distal clavicle, concerning for low to moderate grade AC separation. No suspicious bony lesions. Vi sualized ribs appear intact. Soft tissues: No suspicious soft tissue calcifications. IMPRESSION: No shoulder fracture or dislocation. Possible low to moderate grade AC separation, sugge st clinical correlation. Reviewed by: Ihsan Juan MD on 06/02/2021 8:05 PM PST Approved by: Ihsan Juan MD on 06/02/2021 8:05 PM PST Station ID: [id number]
== END 2021-06-02 23:59 | disposition home or self-care (01) ==
LOC: DI.N 18:24
PROVIDERS: ATTEND Family Medicine
DX: M25.512 Pain in left shoulder (principal); M25.532 Pain in left wrist

== ENCOUNTER 2021-07-13 07:30 | Outpatient (CLI) | payer OTHER ==
--- NOTE | 2021-07-13 16:36 | MRI Report ---
PROCEDURE: Shoulder LT W/O INDICATIONS: PAIN IN LEFT SHOULDER TECHNIQUE: Noncontrast oblique coronal T2 fast spin echo with fat saturation, oblique sagittal T1 spin echo and T2 fast spin echo with fat saturation, axial T1 spin echo and T2 fast spin echo with fat saturation t hrough the shoulder. COMPARISON: None. FINDINGS: Image quality: Excellent. Rotator cuff: Tendinosis and possible low-grade bursal surface partial-thickness tear involving dista l supraspinatus at its insertion on humeral head extending to musculotendinous junction is seen. Mild of distal subscapularis and infraspinatus tendinosis is seen. No full-thickness rotator cuff tendon rupture. No rotator cuff muscle atrophy on sagittal images. Bones and bursae: Mild edema involving superior anterior aspect of humeral head deep to the bicipital groove is seen without discrete fracture line. No other area of abnormal marrow signal. No acromiocl avicular joint degeneration. The acromion demonstrates conventional anatomy, without an os acromiale . No pathologic subacromial/subdeltoid bursal fluid is present. Capsule and soft tissues: In the absence of intra-articular contrast, the labrum and glenohumeral li gaments appear intact. The long head of the biceps tendinosis is present. The rotator interval appea rs normal, without fibrosis. The coracohumeral ligament is normal in thickness. IMPRESSION: 1. Tendinosis and low-grade bursal surface partial-thickness tear involving distal supraspinatus exte nding to musculotendinous junction. Distal infraspinatus and subscapularis tendinosis. No full-thickn ess rotator cuff tendon rupture. 2. Mild contusion involving superior anterior aspect of humeral head without discrete fracture line. No significant joint effusion or subacromial subdeltoid bursal fluid. 3. No gross focal labral tear. 4. Suggestion of proximal intra-articular portion of long head of biceps tendinosis. Reviewed by: Ihsan Diane MD on 07/13/2021 4:35 PM PST Approved by: Ihsan Diane MD on 07/13/2021 4:35 PM PST Station ID: [id number]
== END 2021-07-13 07:31 | disposition home or self-care (01) ==
LOC: DI 07:30
PROVIDERS: ATTEND Nurse Practitioner Family
DX: M75.112 Incomplete rotator cuff tear or rupture of left shoulder, not specified as traumatic (principal); S40.022A Contusion of left upper arm, initial encounter